=== PATIENT | female | born 2000 | race Caucasian/White ===

== ENCOUNTER 2024-01-17 19:37 | Emergency (ER) | payer BC ==
[~2024-01-17] VITALS: Ht 175.3 cm; Wt 49.9 kg
[2024-01-17 19:54] VITALS: BP 131/82; PULSE 80; RESP 18; TEMP 98.6; O2SAT 100
[2024-01-17 20:44] LABS: FLU A ANTIGEN NEGATIVE (NEGATIVE); FLU B ANTIGEN NEGATIVE (NEGATIVE)
[2024-01-17] MEDS ORDERED: ALBU0.0912 IH (21:50)
== END 2024-01-17 21:52 | disposition home or self-care (01) ==
LOC: MED 19:37
DX: B34.9 Viral infection, unspecified (principal); R03.0 Elevated blood-pressure reading, without diagnosis of hypertension; Z20.822 Contact with and (suspected) exposure to COVID-19; Z79.899 Other long term (current) drug therapy
CPT/HCPCS: 71045; 99284